=== PATIENT | female | born 1960 | race Hispanic/Latino ===

== ENCOUNTER 2018-05-02 11:46 | Outpatient (CLI) | payer MEDICARE, OTHER | END 2018-05-02 11:47 | disposition home or self-care (01) | LOC: LAB 11:46 | PROVIDERS: ATTEND Specialist | DX: G65.1 Sequelae of other inflammatory polyneuropathy (principal); R53.1 Weakness; M62.9 Disorder of muscle, unspecified | CPT/HCPCS: 36415; 83921; 84443 ==